=== PATIENT | male | born 1985 | race American Indian/Alaskan Native ===

== ENCOUNTER 2017-02-25 21:12 | Emergency (ER) | payer SELFPAY ==
[2017-02-25 21:22] VITALS: TEMP 98.7; O2SAT 99
--- NOTE | 2017-02-25 22:46 | C.PDOC ---
History Of Present Illness 32 y/o male with c/o dry cough, sore throat, headache, earache, and bilateral eye redness for 2 days. Patient also reports discharge from bilateral eyes. Denies eye pain, visual changes, neck pain, fever, or chills. Patient reports taking OTC Dayquil with no relief. Time Seen by Provider: 02/25/17 21:36 Chief Complaint (Nursing): ENT Problem History Per: Patient History/Exam Limitations: no limitations Onset/Duration Of Symptoms: Days Current Symptoms Are (Timing): Still Present Location Of Pain: Throat, Headache Sick Contacts (Context): None Associated Symptoms: Sore Throat, Cough. denies: Fever, Sputum, Neck Pain, Vomiting, Diarrhea Ear Symptoms: Bilateral: Ear Pain Recent travel outside of the [place]: No Past Medical History Reviewed: Historical Data, Nursing Documentation, Vital Signs Vital Signs: Last Vital Signs Temp 98.7 F 02/25/17 21:20 Pulse 76 02/25/17 22:50 Resp 18 02/25/17 22:50 BP 118/72 02/25/17 22:50 Pulse Ox 99 02/26/17 02:10 - Medical History PMH: No Chronic Diseases Family History: States: Unknown Family Hx - Social History Hx Alcohol Use: No Hx Substance Use: No Review Of Systems Except As Marked, All Systems Reviewed And Found Negative. Constitutional: Negative for: Fever Eyes: Positive for: Conjunctivae Inflammation ENT: Positive for: Throat Pain Respiratory: Negative for: Cough, Shortness of Breath, Wheezing Gastrointestinal: Negative for: Nausea, Vomiting Musculoskeletal: Negative for: Neck Pain Skin: Negative for: Rash Neurological: Positive for: Headache Physical Exam - Physical Exam Appears: Non-toxic, No Acute Distress Skin: Warm, Dry Head: Atraumatic, Normacephalic Eye(s): bilateral: PERRL, EOMI, Other (conjunctival injection, no purulent drainage) Ear(s): Bilateral: Normal Nose: Normal Oral Mucosa: Moist Throat: Erythema (pharyngeal ), No Exudate, Other (no tonsilar enlargement) Neck: Normal ROM, No Paracervical Tenderness, Supple Chest: Symmetrical Cardiovascular: Rhythm Regular, No Murmur Respiratory: Normal Breath Sounds, No Rales, No Rhonchi, No Wheezing Gastrointestinal/Abdominal: Soft, No Tenderness Back: Normal Inspection Extremity: Normal ROM, Capillary Refill (< 2 sec. ) Neurological/Psych: Oriented x3, Normal Speech, Normal Cognition ED Course And Treatment O2 Sat by Pulse Oximetry: 99 (RA) Pulse Ox Interpretation: Normal Progress Note: On reassessment, patient is resting comfortably, and is in no acute distress. Patient instructed to take prescribed medications as directed, and to follow up with clinic within 1-2 days. Disposition Counseled Patient/Family Regarding: Diagnosis, Need For Followup, Rx Given - Disposition Referrals: [facility] at [facility] [Outside] Disposition: HOME/ ROUTINE Disposition Time: 22:42 Condition: STABLE Additional Instructions: Please follow up with PMD Take meds as directed Return to ER if worse Prescriptions: Ibuprofen [Motrin] 600 mg PO Q6H #30 tab Benzonatate [Tessalon Perles] 100 mg PO TID #20 sgl Dexamethasone/Tobramycin [Tobradex 0.1%-0.3% 2.5 Ml] 1 drop OP BID #1 bottle Azithromycin [Zithromax] 250 mg PO DAILY #6 tab Instructions: Acute Bronchitis (ED), Conjunctivitis (ED) Forms: Work Excuse - Clinical Impression Clinical Impression: Conjunctivitis, Bronchitis - 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 - Scribe Statement The provider has reviewed the documentation as recorded by the [employer] Velasco All medical record entries made by the [employer] were at my direction and personally dictated by me. I have reviewed the chart and agree that the record accurately reflects my personal performance of the history, physical exam, medical decision making, and the department course for this patient. I have also personally directed, reviewed, and agree with the discharge instructions and disposition.
[2017-02-25 23:13] VITALS: BP 118/72; PULSE 76; RESP 18
== END 2017-02-25 23:13 | disposition home or self-care (01) ==
LOC: C.ER 21:12
DX: J40 Bronchitis, not specified as acute or chronic (principal); H10.9 Unspecified conjunctivitis